=== PATIENT | female | born 1980 | race Caucasian/White ===

== ENCOUNTER → 2016-05-23 | Outpatient (CLI) | payer BC ==
[~2016-05-23] MED LIST: DOCU50CA2 PO; FLV400 PO; MTR600X PO; MULTTAB58 PO; OMEG12006 PO; OXYC-57 PO; PREN1TAB29 PO
[2016-05-23 18:08] LABS: THYROID STIMULATING HORMONE 1.05 uIu/ml (0.300-4.500)
== END | disposition home or self-care (01) ==
LOC: C.LAB1850 16:44
PROVIDERS: ATTEND Internal Medicine Endocrinology, Diabetes & Metabolism
DX: E03.9 Hypothyroidism, unspecified (principal)

== ENCOUNTER → 2016-12-02 | Outpatient (CLI) | payer BC | END | disposition home or self-care (01) | LOC: C.PAPS 16:16 | PROVIDERS: ATTEND Obstetrics & Gynecology | DX: Z01.419 Encounter for gynecological examination (general) (routine) without abnormal findings (principal) ==

== ENCOUNTER → 2017-02-05 | Outpatient (CLI) | payer BC ==
[2017-02-05 10:02] LABS: THYROID STIMULATING HORMONE 0.559 uIu/ml (0.300-4.500)
== END | disposition home or self-care (01) ==
LOC: C.LAB1850 08:24
PROVIDERS: ATTEND Internal Medicine Endocrinology, Diabetes & Metabolism
DX: E03.9 Hypothyroidism, unspecified (principal); E06.3 Autoimmune thyroiditis

== ENCOUNTER → 2017-03-22 | Outpatient (CLI) | payer BC ==
--- NOTE | 2017-03-22 11:09 | DIAGNOSTIC IMAGING REPORT ---
CERVICAL SPINE 2 OR 3 VIEWS CLINICAL HISTORY: 36 years-old Female presenting with FALL, lower back pain and pain across the mid back. TECHNIQUE: Lateral, frontal, and open-mouth odontoid views of the cervical spine were obtained. COMPARISON: 05/30/2012. FINDINGS: Straightening of normal cervical lordosis likely positional. Vertebral bodies maintain normal height and alignment. Intervertebral disc spaces preserved. No degenerative change. No radiographic evidence of fracture or subluxation. No prevertebral soft tissue swelling. Normal atlantodental interval. Lateral masses of C1 articulate normally with C2. IMPRESSION: Normal cervical spine. Electronically signed by: Rashawn Rocha M.D. 03/22/2017 11:08 AM Dictated Date/Time: 03/22/2017 11:07 AM
--- NOTE | 2017-03-22 11:10 | DIAGNOSTIC IMAGING REPORT ---
PELVIS 1 OR 2 VIEW ROUTINE CLINICAL HISTORY: 36 years-old Female presenting with FALL. TECHNIQUE: Single frontal view of the pelvis was obtained. COMPARISON: None. FINDINGS: Bony pelvis intact. Pubic symphysis, sacroiliac joints, and hip joints congruent. Moderate stool burden. Scoliotic curvature of the lower lumbar spine. Arcuate lines intact. IMPRESSION: No acute osseous injury of the pelvis. Electronically signed by: Rashawn Rocha M.D. 03/22/2017 11:09 AM Dictated Date/Time: 03/22/2017 11:08 AM
--- NOTE | 2017-03-22 11:11 | DIAGNOSTIC IMAGING REPORT ---
THORACOLUMBAR SPINE 2 VIEWS CLINICAL HISTORY: 36 years-old Female presenting with FALL. TECHNIQUE: 3 views of the thoracolumbar spine were obtained. COMPARISON: None. FINDINGS: Normal kyphosis of the lower thoracic spine and normal lumbar lordosis. Vertebral bodies maintain normal height and alignment. Intervertebral disc spaces preserved. No degenerative change. No radiographic evidence of a compression deformity or subluxation. Mild levocurvature of the lumbar spine centered at L2-3. Visualized portion of the lung bases normal. No bowel obstruction. IMPRESSION: Mild levocurvature of the lumbar spine. No acute osseous injury is radiographically apparent. Electronically signed by: Rashawn Rocha M.D. 03/22/2017 11:10 AM Dictated Date/Time: 03/22/2017 11:09 AM
--- NOTE | 2017-03-22 11:14 | DIAGNOSTIC IMAGING REPORT ---
RIBS BILATERAL WITH PA CHEST CLINICAL HISTORY: 36 years-old Female presenting with FALL. TECHNIQUE: PA view of the chest and frontal and oblique views of the bilateral ribs were obtained. COMPARISON: None. FINDINGS: Cardiomediastinal silhouette normal. Lungs and pleural spaces clear. Upper abdomen normal. No displaced rib fracture. IMPRESSION: 1. No acute cardiopulmonary disease. 2. No displaced rib fracture. Electronically signed by: Rashawn Rocha M.D. 03/22/2017 11:12 AM Dictated Date/Time: 03/22/2017 11:10 AM
== END | disposition home or self-care (01) ==
LOC: C.RADBC 10:36
PROVIDERS: ATTEND Internal Medicine
DX: Z91.81 History of falling (principal)